=== PATIENT | male | born 1995 | race Caucasian/White ===

== ENCOUNTER 2020-03-16 10:19 | Emergency (ER) | payer BC ==
--- NOTE | 2020-03-16 11:01 | EDM.PDOC ---
ED HPI GENERAL MEDICAL PROBLEM - General Chief Complaint: General Stated Complaint: HIT IN MOUTH HANDLE BARS Time Seen by Provider: 03/16/20 10:55 Source of Information: Reports: Patient, Family, RN Notes Reviewed History Limitations: Reports: No Limitations - History of Present Illness INITIAL COMMENTS - FREE TEXT/NARRATIVE: 24-year-old gentleman presents emergency department today following trauma at home he was working on a bicycle tire pulling hard on it and let go he then hit himself in the face causing his tooth to puncture through his lower lip - Related Data Allergies Allergy/AdvReac Type Severity Reaction Status Date / Time No Known Allergies Allergy Verified 03/16/20 10:44 Home Meds: Home Meds NK [No Known Home Meds] 03/16/20 [History] Past Medical History - Past Surgical History Head Surgeries/Procedures: Reports: None Social & Family History - Tobacco Use Smoking Status *Q: Never Smoker Second Hand Smoke Exposure: No - Caffeine Use Caffeine Use: Reports: Soda - Alcohol Use Days Per Week of Alcohol Use: 2 Number of Drinks Per Day: 2 Total Drinks Per Week: 4 - Recreational Drug Use Recreational Drug Use: No ED ROS GENERAL - Review of Systems Review Of Systems: See Below HEENT: Reports: No Symptoms Skin: Reports: Wound Neurological: Reports: No Symptoms ED EXAM, GENERAL - Physical Exam Exam: See Below Free Text/Narrative:: Mouth mucosa is moist and pink there is no erythema or exudate known soft palate tongue is midline uvula is midline dentition is intact I do appreciate what appears to be more of a a pinch in center of the lip there is a dentition maxim on the inside of the mucosal however I cannot appreciate any depth to this also superficial abrasion on the lower lip skin it does not completely go through the dermis Exam Limited By: No Limitations General Appearance: Alert, WD/WN, No Apparent Distress Course - Vital Signs Last Recorded V/S: Last Vital Signs Temp 96.3 F L 03/16/20 10:48 Pulse 92 03/16/20 10:48 Resp 17 03/16/20 10:48 BP 112/85 03/16/20 10:48 Pulse Ox 96 03/16/20 10:48 Departure - Departure Time of Disposition: 11:01 Disposition: Home, Self-Care 01 Condition: Good Clinical Impression: Abrasion of lip Qualifiers: Encounter type: initial encounter Qualified Code(s): S00.511A - Abrasion of lip, initial encounter - Discharge Information Instructions: Abrasion, [id number] Referrals: PCP,None [Primary Care Provider] - Additional Instructions: Follow-up with primary care as needed Sepsis Event Note (ED) - Focused Exam Vital Signs: Vital Signs Temp Pulse Resp BP Pulse Ox 03/16/20 10:48 96.3 F L 92 17 112/85 96 - Assessment/Plan Plan: Assessment Acuity = acute Site and laterality = lip abrasion Etiology = trauma Manifestations = none Location of injury = Home Lab values = none Plan Follow-up primary care as needed This note was dictated using [employer] voice recognition software please call with any questions on syntax or grammar.
== END 2020-03-16 11:07 | disposition home or self-care (01) ==
LOC: JP.ED 10:19
DX: S00.511A Abrasion of lip, initial encounter (principal); W22.8XXA Striking against or struck by other objects, initial encounter; Y92.009 Unspecified place in unspecified non-institutional (private) residence as the place of occurrence of the external cause
CPT/HCPCS: 99282